=== PATIENT | female | born 1935 | race Caucasian/White ===

== ENCOUNTER → 2024-04-12 11:22 | Outpatient (REF) | payer OTHER, SELFPAY | LOC: HWRCS 11:22 | PROVIDERS: ATTENDING PHYSICIAN Nurse Practitioner; FAMILY PHYSICIAN Internal Medicine | DX: I48.0 Paroxysmal atrial fibrillation (principal); I50.20 Unspecified systolic (congestive) heart failure | CPT/HCPCS: 93306 ==